=== PATIENT | female | born 1985 | race Two or more races ===

== ENCOUNTER 2017-01-09 19:00 | Inpatient (IN) | payer OTHER ==
[2017-01-09 20:57] VITALS: BMI 43.2
[2017-01-09] MEDS: DEXTROSE 5%-LACTATED RINGERS 1,000 ML IV SCH (22:00)
[2017-01-09] MEDS ORDERED: AMPICILLIN - 100 ML IVPB ONE (22:00)
[2017-01-10] MEDS: AMPICILLIN - 100 ML IVPB SCH ×5 (02:00→19:21)
[2017-01-10] MEDS ORDERED: PROMETHAZINE HCL 25 MG/1 ML VIAL IVPB ONE (02:00)
[2017-01-10] MEDS ORDERED: BUTORPHANOL TARTRATE 1 MG/ML VIAL IVPB ONE (02:00)
--- NOTE | 2017-01-10 08:19 | HP ---
Past Medical History - Admission Chief Complaint: 31 year old female gravida2 p1, presented to [facility] with premature rupture of membrane. History of Present Illness: Previous History of C/S, pt is requesting a V-back. Her antepartum course has been unremarkable. Blood type O positive, RPR negative, rubella positive. SMA positive father of baby negative. Her antepartum course has been unremarkable.She presented to [facility] requesting a [facility]-Back. History Source: Patient Limitations to Obtaining History: No Limitations - Past Medical History ...: 2 ...Para: 1 ...Term: 1 ...LMP: 03/30/16 ... Weeks Gestation by Dates: 43.3 ...EDC by Dates: 12/16/16 ...EDC by [facility]: 01/13/17 - Past Surgical History Past Surgical History: Yes: None, Hx Myomectomy: No Hx Transabdominal Cerclage: No - Smoking History Smoking history: Never smoked Have you smoked in the past 12 months: Yes Aproximately how many cigarettes per day: 4 - Alcohol/Substance Use Hx Alcohol Use: No Home Medications - Allergies Allergies/Adverse Reactions: Allergies Allergy/AdvReac Type Severity Reaction Status Date / Time No Known Drug Allergies Allergy Verified 01/09/17 18:39 - Home Medications Home Medications: Ambulatory Orders Vit/Iron Fumarate/FA [ Tablet] 1 tab PO DAILY 01/09/17 Review of Systems - Review of Systems Constitutional: reports: No Symptoms, Chills, Diaphoresis, Fever, Lethargy, Loss of Appetite, Malaise, Night Sweats, Unintentional Wgt. Loss, Weakness, Other Eyes: denies: No Symptoms, Blind Spots, Blurred Vision, Double Vision, Eye Pain , Floaters, Photophobia, Recent Change in Vision, Other HENT: denies: No Symptoms, Difficult Swallowing, Ear Discharge, Ear Pain, Epistaxis, Gingival Bleeding, Hearing Loss, Mouth Swelling, Nasal Congestion, Ocular Prosthesis, Throat Pain, Toothache, Ringing in Ears, Other Neck: denies: No Symptoms, Decreased ROM, Lumps, Pain on Movement, Stiffness, Swollen Glands, Tenderness, Other Cardiovascular: denies: No Symptoms, Chest Pain, Edema, Palpitations, Shortness of Breath, Other Respiratory: denies: No Symptoms, Cough, Exercise Intolerance, Hemoptysis, Orthopnea, PND, Snoring, SOB, SOB on Exertion, Wheezing, Other Gastrointestinal: denies: No Symptoms, Abdominal Pain, Bloating, Constipation, Diarrhea, Dysphagia, Indigestion, Melena, Nausea, Rectal Bleeding, Vomiting, Vomiting Blood, Other Genitourinary: denies: No Symptoms, Burning, Discharge, Dysuria, Flank Pain, Frequency, Hematuria, Incontinence, Lesions, Menses, Pain, Testicular Mass, Testicular Pain, Testicular Swelling, Urgency, Vaginal Bleeding, Other Breasts: denies: No Symptoms Reported, See HPI, Breast Implants, Discharge from Nipple, Lumps, Pain, Skin Changes, Other Musculoskeletal: denies: No Symptoms, Back Pain, Crepitus, Decreased ROM, Extremity Pain, Joint Pain, Joint Swelling, Muscle Pain, Muscle Cramps, Muscle Weakness, Other Integumentary: denies: No Symptoms, Blister, Bruising, Change in Color, Eczema, Erythema, Incision, Lesions, Lump, Pallor, Pruritis, Rash, Wound, Other Neurological: denies: No Symptoms, Change in LOC, Change in Speech, Confusion, Dizziness, Headache, Incoordination, Numbness, Parasthesia, Pre-Existing Deficit , Seizure, Syncope, Tremors, Unsteady Gait, Weakness, Other Endocrine: denies: No Symptoms, Excessive Sweating, Flushing, Increased Hunger, Increased Thirst, Intolerance to Cold, Intolerance to Heat, Unexplained Weight Gain, Unexplained Weight Loss, Other Hematology/Lymphatic: denies: No Symptoms, Easily Bruised, Excessive Bleeding, Swollen Glands, Other Psychiatric: denies: No Symptoms, Altered Sleep Pattern, Anxiety, Depression, Hallucinations, Panic, Paranoia, Suicidal, Other Physical Exam - Maternity Vital Signs: Vital Signs Temperature 97.9 F 01/10/17 06:00 Pulse Rate 84 01/10/17 06:00 Respiratory Rate 20 01/10/17 06:00 Blood Pressure 124/78 01/10/17 06:00 O2 Sat by Pulse Oximetry (%) Constitutional: Yes: Well Nourished, No Distress, Calm Eyes: Yes: WNL HENT: Yes: WNL Neck: Yes: WNL, Supple Cardiovascular: Yes: Regular Rate and Rhythm Lungs: Normal air movement Breast(s): Yes: WNL - Abdominal Exam/OB Number of Fetuses: Single Presentation: Vertex Contractions: Yes Regularity: Irregular Intensity: Mild/Mod Monitor Mode: External Heart Rate (range): 140 BPM Heart Rate Location: [facility] Category: I Accelerations: Uniform Decelerations: None - Vaginal Exam/OB Vaginal Bleediing: No Speculum Exam: No Dilatation (cm): 1-2 Effacement (%): long Amniotic Membrane Status: Ruptured Nitrazine Test: Positive Amniotic Fluid: Yes: Clear Station: -3 - Physical Exam Musculoskeletal: Yes: WNL Extremities: Yes: WNL Edema: No Integumentary: Yes: WNL Deep Tendon Reflex Grade: Normal +2 ...Motor Strength: WNL Psychiatric: Yes: Alert, Oriented Assessment/Plan IUP at term, previous , was admitted with H/O of PROM for V-Back.
[2017-01-10] MEDS ORDERED: CITRIC ACID/SODIUM CITRATE 30 ML UNIT-DOSE CUP PO ONE (09:42)
--- NOTE | 2017-01-10 09:42 | PN ---
Progress Note (short form) - Note Progress Note: Called this am by receptionist clerk who stated that Pt requested repeat . Pt was then prepped for Consent signed and anesthesia called.
--- NOTE | 2017-01-10 09:46 | OP ---
Operative Note - Note: Operative Date: 01/10/17 Pre-Operative Diagnosis: Failed Operation: Repeat Low Transverse Findings: Baby boy in ROT position Post-Operative Diagnosis: Same as Pre-op Surgeon: Dayna Bass Web Developer Programmer: Denny Lyle Anesthesia: Spinal Specimens Removed: Placenta Estimated Blood Loss (mls): 600 Operative Report Dictated: Yes
[2017-01-10] MEDS ORDERED: morphine SULFATE/Preservative Free 0.5 MG/ML (1cc Syringe) SPIN ONE (09:59)
[2017-01-10] MEDS ORDERED: METHYLERGONOVINE MALEATE 0.2 MG/1 ML AMP IM PRN (11:05)
[2017-01-10] MEDS: IBUPROFEN 800 MG/8 ML IJ IVPB PRN ×2 (11:30→21:31)
[2017-01-10] MEDS: D5W-LR W/ 20 UNITS OXYTOCIN 1,000 ML IV SCH ×2 (11:58→22:00)
[2017-01-10] MEDS ORDERED: ONDANSETRON 4 MG/2 ML VIAL IVPB PRN (13:32)
[2017-01-10] MEDS: DEXTROSE 5%-LACTATED RINGERS 1,000 ML IV SCH (23:30)
[2017-01-11] MEDS: IBUPROFEN 800 MG/8 ML IJ IVPB PRN (05:17)
[2017-01-11] MEDS: DEXTROSE 5%-LACTATED RINGERS 1,000 ML IV SCH (06:33)
--- NOTE | 2017-01-11 06:55 | PN ---
Post Progress Note - Subjective Subjective: 31 yo Para 2 status post repeat , seen and evaluated. She's lying in bed. Post Day: 1 Type of Delivery: Repeat C/S Vital Signs: Vital Signs Temperature 98 F 01/11/17 06:00 Pulse Rate 79 01/11/17 06:00 Respiratory Rate 18 01/11/17 06:00 Blood Pressure 118/53 01/11/17 06:00 O2 Sat by Pulse Oximetry (%) 99 01/10/17 11:45 Breast Exam: Yes: Soft Uterus: Yes: Fundus Firm Incision: Yes: Dressing dry and intact Abdomen/GI: Yes: Abdomen soft Lochia: Yes: Rubra Lochia, amount: Small Extremities: Yes: Calves non-tender Perineum: Yes: Intact Problem List - Problems (1) Status post repeat low transverse section Code(s): Z98.891 - HISTORY OF UTERINE SCAR FROM PREVIOUS SURGERY Assessment/Plan Status post repeat Stable Ambulation Analgesia as needed Continue Post op care
[2017-01-11 07:18] LABS: BASOPHIL 0.3 % (0-2.0); EOSINOPHIL 1.1 % (0-4.5); MCH 26.7 pg (25.7-33.7); MCHC 33.3 g/dl (32.0-36.0); MEAN CELL VOLUME 80.2 fl (80-96); MEAN PLT VOLUME 7.1 fl (7.5-11.1); NEUTROPHILS 79.7 % (42.8-82.8); PLATELET COUNT 193 K/MM3 (134-434); RDW 13.9 % (11.6-15.6); WHITE BLOOD COUNT 15.6 K/mm3 (4.0-10.0)
--- NOTE | 2017-01-11 08:18 | PN ---
Progress Note (short form) - Note Progress Note: Anesthesia/Pain Pt seen and examined S:alert and awake comfortable O: Vital Signs Temperature 98 F 01/11/17 06:00 Pulse Rate 79 01/11/17 06:00 Respiratory Rate 20 01/11/17 08:00 Blood Pressure 118/53 01/11/17 06:00 O2 Sat by Pulse Oximetry (%) 99 01/10/17 11:45 CBC, BMP 01/11/17 06:00 A/P: Current Active Problems Status post repeat low transverse section (Acute) Doing well post op Continue current care Darrel Garrison MD
[2017-01-11] MEDS ORDERED: DIPHTH,PERTUSS(ACELL),TET 0.5 ML DISP.SYRIN IM ONE (10:00)
[2017-01-11] MEDS: oxyCODONE HCL 5 MG TABLET PO PRN ×2 (10:46→14:53)
[2017-01-11] MEDS: ACETAMINOPHEN 325 MG TABLET (FP) PO PRN ×3 (10:46→21:52)
[2017-01-11] MEDS: SIMETHICONE 80 MG TAB.CHEW (FP) PO PRN ×3 (10:46→21:50)
[2017-01-11] MEDS: IBUPROFEN 600 MG TABLET (FP) PO PRN ×3 (10:46→21:50)
[2017-01-11] MEDS: D5W-LR W/ 20 UNITS OXYTOCIN 1,000 ML IV SCH (16:07)
[2017-01-12] MEDS: DEXTROSE 5%-LACTATED RINGERS 1,000 ML IV SCH (01:50)
[2017-01-12] MEDS: oxyCODONE HCL 5 MG TABLET PO PRN ×3 (07:45→21:06)
[2017-01-12] MEDS: IBUPROFEN 600 MG TABLET (FP) PO PRN ×2 (07:46→13:42)
[2017-01-12] MEDS: SIMETHICONE 80 MG TAB.CHEW (FP) PO PRN ×3 (07:47→21:06)
[2017-01-12] MEDS: BISACODYL 10 MG SUPP.RECT RC PRN (10:54)
--- NOTE | 2017-01-12 12:29 | PN ---
Post Progress Note - Subjective Subjective: 31 yo status post repeat , seen and evaluated. Doing well. Post Day: 1 Type of Delivery: Repeat C/S Vital Signs: Vital Signs Temperature 98.0 F 01/12/17 09:00 Pulse Rate 85 01/12/17 09:00 Respiratory Rate 20 01/12/17 09:00 Blood Pressure 116/71 01/12/17 09:00 O2 Sat by Pulse Oximetry (%) 99 01/10/17 11:45 Breast Exam: Yes: Soft Uterus: Yes: Fundus Firm Incision: Yes: Dressing dry and intact Abdomen/GI: Yes: Abdomen soft, Tolerating PO Lochia: Yes: Rubra Lochia, amount: Small Extremities: Yes: Calves non-tender Perineum: Yes: Intact Activity: Ambulating - Labs Labs: CBC WBC 15.6 K/mm3 (4.0-10.0) H 01/11/17 06:00 RBC 3.91 M/mm3 (3.60-5.2) 01/11/17 06:00 Hgb 10.4 GM/dL (10.7-15.3) L D 01/11/17 06:00 Hct 31.4 % (32.4-45.2) L D 01/11/17 06:00 MCV 80.2 fl (80-96) 01/11/17 06:00 MCH 26.7 pg (25.7-33.7) 01/11/17 06:00 MCHC 33.3 g/dl (32.0-36.0) 01/11/17 06:00 RDW 13.9 % (11.6-15.6) 01/11/17 06:00 Plt Count 193 K/MM3 (134-434) D 01/11/17 06:00 MPV 7.1 fl (7.5-11.1) L 01/11/17 06:00 Neutrophils % 79.7 % (42.8-82.8) 01/11/17 06:00 Lymphocytes % 13.0 % (8-40) D 01/11/17 06:00 Monocytes % 5.9 % (3.8-10.2) 01/11/17 06:00 Eosinophils % 1.1 % (0-4.5) 01/11/17 06:00 Basophils % 0.3 % (0-2.0) 01/11/17 06:00 Problem List - Problems (1) Status post repeat low transverse section Code(s): Z98.891 - HISTORY OF UTERINE SCAR FROM PREVIOUS SURGERY Assessment/Plan Status post repeat Stable Ambulation Analgesia as needed Continue Post op care
[2017-01-12] MEDS: ACETAMINOPHEN 325 MG TABLET (FP) PO PRN (21:05)
[2017-01-13] MEDS: SIMETHICONE 80 MG TAB.CHEW (FP) PO PRN ×3 (03:22→17:05)
[2017-01-13] MEDS: oxyCODONE HCL 5 MG TABLET PO PRN ×3 (03:23→17:05)
[2017-01-13] MEDS: ACETAMINOPHEN 325 MG TABLET (FP) PO PRN ×3 (03:23→17:06)
[2017-01-13 08:01] LABS: BASOPHIL 0.7 % (0-2.0); MCH 26.8 pg (25.7-33.7); MCHC 33.1 g/dl (32.0-36.0); MEAN PLT VOLUME 7.1 fl (7.5-11.1); NEUTROPHILS 64.3 % (42.8-82.8); PLATELET COUNT 270 K/MM3 (134-434); RDW 14.4 % (11.6-15.6); WHITE BLOOD COUNT 11.1 K/mm3 (4.0-10.0)
--- NOTE | 2017-01-13 10:18 | PN ---
Post Progress Note Post Day: 3 Type of Delivery: Repeat C/S Vital Signs: Vital Signs Temperature 98 F 01/13/17 07:50 Pulse Rate 71 01/13/17 07:50 Respiratory Rate 20 01/13/17 07:50 Blood Pressure 128/80 01/13/17 07:50 O2 Sat by Pulse Oximetry (%) 99 01/10/17 11:45 Uterus: Yes: Fundus Firm, Fundus below umbilicus Incision: Yes: Sutures intact Abdomen/GI: Yes: Abdomen soft, Passing flatus, Tolerating PO. No: Tender Lochia, amount: Small Extremities: Yes: Calves non-tender, Edema (trace LE edema b/l) Perineum: Yes: Intact Activity: Ambulating - Labs Labs: CBC WBC 11.1 K/mm3 (4.0-10.0) H 01/13/17 06:00 RBC 4.04 M/mm3 (3.60-5.2) 01/13/17 06:00 Hgb 10.8 GM/dL (10.7-15.3) 01/13/17 06:00 Hct 32.7 % (32.4-45.2) 01/13/17 06:00 MCV 81.0 fl (80-96) 01/13/17 06:00 MCH 26.8 pg (25.7-33.7) 01/13/17 06:00 MCHC 33.1 g/dl (32.0-36.0) 01/13/17 06:00 RDW 14.4 % (11.6-15.6) 01/13/17 06:00 Plt Count 270 K/MM3 (134-434) D 01/13/17 06:00 MPV 7.1 fl (7.5-11.1) L 01/13/17 06:00 Neutrophils % 64.3 % (42.8-82.8) 01/13/17 06:00 Lymphocytes % 27.0 % (8-40) D 01/13/17 06:00 Monocytes % 5.0 % (3.8-10.2) 01/13/17 06:00 Eosinophils % 3.0 % (0-4.5) D 01/13/17 06:00 Basophils % 0.7 % (0-2.0) 01/13/17 06:00 Problem List - Problems (1) Status post repeat low transverse section Code(s): Z98.891 - HISTORY OF UTERINE SCAR FROM PREVIOUS SURGERY (2) Obesity compl pregn//puerperp Code(s): ABS3953 - Assessment/Plan 31 y/o POD#3 s/p repeat c section, failed - AFVSS - Hgb 10.8 post op, pt stable - regular diet, encourage ambulation, PO pain meds - routine care - for discharge home in a.m.
[2017-01-13] MEDS: IBUPROFEN 600 MG TABLET (FP) PO PRN ×2 (10:49→17:06)
[2017-01-13] MEDS ORDERED: oxyCODONE HCL 5 MG TABLET ONE (17:03)
[2017-01-13] MEDS: BISACODYL 10 MG SUPP.RECT RC PRN (20:50)
[2017-01-14] MEDS: IBUPROFEN 600 MG TABLET (FP) PO PRN ×2 (00:07→07:29)
[2017-01-14] MEDS: ACETAMINOPHEN 325 MG TABLET (FP) PO PRN ×2 (00:07→07:28)
[2017-01-14] MEDS: SIMETHICONE 80 MG TAB.CHEW (FP) PO PRN ×2 (00:08→07:28)
--- NOTE | 2017-01-14 06:53 | DS ---
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 Vital Signs: Vital Signs Temperature 98.2 F 01/14/17 06:00 Pulse Rate 74 01/14/17 06:00 Respiratory Rate 18 01/14/17 06:00 Blood Pressure 114/66 01/14/17 06:00 O2 Sat by Pulse Oximetry (%) 99 01/10/17 11:45 Constitutional: Yes: Well Nourished, No Distress, Calm Eyes: Yes: Conjunctiva Clear, EOM Intact HENT: Yes: Atraumatic, Normocephalic Neck: Yes: Supple, Trachea Midline Cardiovascular: Yes: Regular Rate and Rhythm Respiratory: Yes: Regular, CTA Bilaterally Gastrointestinal: Yes: Normal Bowel Sounds, Soft ...Rectal Exam: Yes: WNL Renal/: Yes: WNL Pelvis: Yes: WNL ....Post : Yes: Uterus firm, Uterus non-tender, Slight lochia rubra Wound/Incision: Yes: Clean/Dry, Well Approximated Neurological: Yes: Alert, Oriented Psychiatric: Yes: Alert, Oriented Labs: CBC, BMP 01/13/17 06:00 Delivery - Delivery Section: Repeat, Low Flap Transverse Type of Anesthesia: Spinal Episiotomy/Laceration: None EBL (cc): 600 Delivery, Single - Stages of Labor Date 1st Stage Initiatied: 01/09/17 Time 1st Stage Initiated: 17:00 Date of Delivery: 01/10/17 Time of Delivery: 10:16 Time Placenta Delivered: 10:17 Placenta: Yes: Manual Removal - Condition of Infant 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 Hospital Course: Patient admitted to hospital on 01/09/17 with complaints of leaking fluid. Patient had spontaneously ruptured her amniotic membranes. Pt initially desired TOLAC and was observed overnight. In the morning 01/10 the patient had not made any significant cervical change and was not in pain or having regular contractions. At that time the decision was made to proceed with a repeat delivery. The patient underwent an uncomplicated repeat delivery on 01/10/17. She then underwent a normal post op/post course and was discharged home in stable condition on post op day 4. Condition: Good - Instructions Diet, Activity, Other Instructions: Physical activity Resume your normal everyday activity as tolerated no heavy lifting or strenuous exercise until seen by your surgeon. You may walk unlimited reggie (and it is recommended to walk) and you may climb stairs. You may resume driving the car when you feel safe and comfortable behind the wheel- about 2 weeks. No sexual activity as instructed for 6 weeks. Wound care If there are tapes on the skin leave them in place. They will peel off in the next 7 to 10 days. Do Not Peel them off. You may shower the day after surgery. If there are tapes present on the skin, you may shower over them. Diet There are no dietary restrictions. Eat healthy, high-fiber foods. Drink 6 to 8 glasses of liquid each day. This will assist in keeping your bowels regular. Pain management You may take Tylenol or Ibuprofen (for example, Motrin, Advil etc.) from mild pain . If any prescription medication is ordered should be taken as prescribed for moderate to severe pain. Call MD for any of the following: Severe pain not relieved by medication Fever of 101 or higher Excessive bleeding or drainage on dressing Inability to urinate Referrals: Nya Corrigan DO [Staff Physician] - 1 Week Disposition: HOME - Home Medications Comprehensive Discharge Medication List: Ambulatory Orders Vit/Iron Fumarate/FA [ Tablet] 1 tab PO DAILY 01/09/17
[2017-01-14] MEDS ORDERED: oxyCODONE HCL 5 MG TABLET PO PRN ×2 (07:16)
[2017-01-14 13:53] VITALS: BP 116/70; PULSE 78; TEMP 98.8
--- NOTE | 2017-01-15 15:48 | PATH ---
Surgical Pathology Report Patient Name: JOSE E MALDONADO Med. Rec. #: [id number] /Age/Gender: 1985 (Age: 31) / F Account: [id number] Location: [facility] OBS/TAILERCPA Taken: 01/10/2017 Received: 01/12/2017 Reported: 01/15/2017 Physicians: Nya Corrigan M.D. Specimen(s) Received PLACENTA Clinical History Failed , , 39.4 weeks gestation; previous c/section for failure to progress-11/24/06 Repeat c/section Final Diagnosis PLACENTA, DELIVERY: FOCALLY DISRUPTED THIRD TRIMESTER PLACENTA WITH MILD INCREASE IN PREVILLOUS, PERIVILLOUS, AND PRECHORIONIC FIBRIN DEPOSITION, THREE VESSEL UMBILICAL CORD, AND UNREMARKABLE PLACENTAL MEMBRANES. Electronically Signed Adams Wynne M.D. Gross Description The specimen is received fresh, labeled "placenta" and is a 544 gram, 18.0 x 16.5 x 2.5 cm placenta with attached membranes and umbilical cord. The attached membranes are vanegas, translucent with focal opacities and insert marginally. The umbilical cord measures 29 cm in length and averages 1.3 cm in diameter. The cord inserts eccentrically, 2 cm. to the nearest margin. No true knots or strictures are identified. Cut surface of the umbilical cord reveals 3 vessels. The surface is botello-blue with fibrin deposition and appropriate caliber vessels. The maternal surface is red-brown with focal defects. Sectioning reveals red-brown, spongy parenchyma. No focal lesions are identified. 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 /01/14/2017 [facility]01/14/2017
== END 2017-01-14 11:00 | disposition home or self-care (01) | DRG 765 ==
LOC: JLDR 19:00 → J3W 01-10 12:30
PROVIDERS: ADMIT Obstetrics & Gynecology; ATTEND Obstetrics & Gynecology
PROC: 4A1HXCZ Monitoring of Products of Conception, Cardiac Rate, External Approach (ICD-10-PCS; 2017-01-09)
PROC: 10D00Z1 Extraction of Products of Conception, Low, Open Approach (ICD-10-PCS; principal; 2017-01-10)
DX: O42.02 Full-term premature rupture of membranes, onset of labor within 24 hours of rupture (principal); Z68.41 Body mass index [BMI] 40.0-44.9, adult; O66.41 Failed attempted vaginal birth after previous cesarean delivery; O34.211 Maternal care for low transverse scar from previous cesarean delivery; O99.213 Obesity complicating pregnancy, third trimester; E66.9 Obesity, unspecified; O99.333 Smoking (tobacco) complicating pregnancy, third trimester; F17.210 Nicotine dependence, cigarettes, uncomplicated; Z3A.39 39 weeks gestation of pregnancy; Z37.0 Single live birth
CPT/HCPCS: 36415; 71020-TC; 85025; 88307-TC; 90715